=== PATIENT | female | born 1965 | race Caucasian/White ===

== ENCOUNTER 2016-10-23 09:45 | Emergency (ER) | END 2016-10-23 11:24 | disposition home or self-care (01) | DX: R00.2 Palpitations (principal); R07.9 Chest pain, unspecified | CPT/HCPCS: 36415; 71010; 80048; 84484; 85025; 85610; 85730; 93005; 96374; Z7502; Z7610 ==

== ENCOUNTER 2017-01-19 14:18 | Emergency (ER) | payer MEDICAID ==
[~2017-01-19] VITALS: Ht 152.4 cm; Wt 63.0 kg
[~2017-01-19 14:18] MED LIST: IBUP-1542 PO
[2017-01-19 14:30] VITALS: Ht 152.4 cm; Wt 63.0 kg
[2017-01-19] MEDS ORDERED: IBUPROFEN 600 MG TAB PO ONE (17:00)
[2017-01-19 17:05] LABS: URINE BLOOD (Dip) POC 1+ (NEGATIVE)
--- NOTE | 2017-01-19 18:09 | RADRPT ---
PROCEDURE: US Pelvis CLINICAL INDICATION: Pelvic pain. TECHNIQUE: Sonographic evaluation of the pelvis was performed utilizing both transabdominal and tr ansvaginal technique. Curved array transabdominal transducer technique as well as a high frequency endovaginal probe was utilized. Images were reviewed on the high-resolution PACS workstation. COMPARISON: No prior studies are available for comparison. FINDINGS: There is a hypoechoic lesion measuring 9 mm in the uterine fundus, which may reflect a small fibroid . The uterus measures 7.74 cm x 4.2 cm x 4.38 cm in dimension. The uterus is anteverted in normal position. The endometrium measures 0.32 cm in thickness. The right ovary measures 2.04 cm x 1.26 cm x 1.39 cm in dimension. The left ovary measures 2.01 cm x 1.25 cm x 1.34 cm in dimension. There is normal flow demonstrated within the ovaries. There are no adnexal masses. There is no significant free fluid within the pelvis. IMPRESSION: 1. Hypoechoic lesion measuring 9 mm in the uterine fundus, which may reflect a small fibroid. 2. The examination is otherwise unremarkable. RPTAT: QQ .Piter Grullon MD, MD Date Time Electronically viewed and signed by .Piter Grullon MD, MD on 01/19/2017 18:08 .P/
[2017-01-19] MEDS ORDERED: NITR-58 PO (18:52)
[2017-01-19] MEDS ORDERED: IBUP-1542 PO (18:58)
[2017-01-19 19:05] VITALS: BP 138/80; PULSE 84; RESP 18; TEMP 98.3
--- NOTE | 2017-01-20 12:09 | ERD ---
ER Documentation Chief Complaint Date/Time DATE: 01/20/17 TIME: 12:05 Chief Complaint PELVIC PAIN X 2 WEEKS HPI This is a 51-year-old female presenting to emergency department for pelvic pain 2 weeks. Patient states she has pelvic pain that she feels is "always there" however pain seems to be getting worse. Denies any vomiting or diarrhea. Patient has urinary frequency and urgency. Denies dysuria hematuria. Patient' s last menstrual period was 2 months ago. Patient states her menstrual periods have been irregular for the past year. Patient is questioning whether she is in menopause. ROS All systems reviewed and are negative except as per history of present illness. Medications Home Meds Active Scripts Ibuprofen* (Motrin*) 600 Mg Tab, 600 MG PO Q6, #15 TAB Prov:DERRICK PEDROZA NP 01/19/17 Nitrofurantoin Monohyd Macrocr* (Macrobid*) 100 Mg Capsr, 100 MG PO BID for 5 Days, CAP Prov:DERRICK PEDROZA NP 01/19/17 Ibuprofen* (Motrin*) 600 Mg Tab, 600 MG PO Q6H Y for PAIN AND OR ELEVATED TEMP, #30 TAB Prov:ALICE AVILA MD 10/23/16 Allergies Allergies: Coded Allergies: Penicillins (Verified Allergy, Mild, 01/19/17) PMhx/Soc History of Surgery: Yes (HYSTERECTOMY) Anesthesia Reaction: No Hx Neurological Disorder: No Hx Respiratory Disorders: No Hx Cardiac Disorders: Yes (hypertension) Hx Psychiatric Problems: No Hx Miscellaneous Medical Probl: No Hx Alcohol Use: No Hx Substance Use: No Hx Tobacco Use: No Smoking Status: Never smoker Physical Exam Vitals Vital Signs Date Time Temp Pulse Resp B/P Pulse Ox O2 Delivery O2 Flow Rate FiO2 01/19/17 19:05 98.3 84 18 138/80 100 Room Air 01/19/17 14:30 98.1 81 20 146/79 99 Physical Exam Const: No acute distress, alert Head: Atraumatic Eyes: Normal Conjunctiva ENT: Normal External Ears, Nose and Mouth. Neck: Full range of motion..~ No meningismus. Resp: Clear to auscultation bilaterally Cardio: Regular rate and rhythm, no murmurs Abd: Soft, non tender, non distended. Normal bowel sounds Skin: No petechiae or rashes Back: No midline or flank tenderness. No CVA tenderness Ext: No cyanosis, or edema Neur: Awake and alert Psych: Normal Mood and Affect Results 24 hrs Laboratory Tests Test 01/19/17 17:05 Bedside Urine pH (LAB) 7.5 Bedside Urine Protein (LAB) Negative Bedside Urine Glucose (UA) Negative Bedside Urine Ketones (LAB) Negative Bedside Urine Blood 1+ Bedside Urine Nitrite (LAB) Negative Bedside Urine Leukocyte Esterase (L 2+ Current Medications Medications (Trade) Dose Ordered Sig/Vanessa Route PRN Reason Start Time Stop Time Status Last Admin Dose Admin Ibuprofen (Motrin) 600 mg ONCE ONCE PO 01/19/17 17:00 01/19/17 17:01 DC 01/19/17 17:35 Procedures/MDM ED COURSE: The patient was stable throughout ED course. I kept the patient and/or family informed of laboratory and diagnostic imaging results throughout the ED course. Laboratory Urine dip 2+ leukocytosis, 1+ blood Urine negative Imaging Ultrasound pelvis Patient: AILYN CARRANZA : 1965 Age: 51 Sex: F MR #: [id number] DOS: 01/19/17 0000 Ordering MD: DERRICK PEDROZA NP Location: [facility] Room/Bed: PROCEDURE: US Pelvis CLINICAL INDICATION: Pelvic pain. TECHNIQUE: Sonographic evaluation of the pelvis was performed utilizing both transabdominal and transvaginal technique. Curved array transabdominal transducer technique as well as a high frequency endovaginal probe was utilized. Images were reviewed on the high-resolution PACS workstation. COMPARISON: No prior studies are available for comparison. FINDINGS: There is a hypoechoic lesion measuring 9 mm in the uterine fundus, which may reflect a small fibroid. The uterus measures 7.74 cm x 4.2 cm x 4.38 cm in dimension. The uterus is anteverted in normal position. The endometrium measures 0.32 cm in thickness. The right ovary measures 2.04 cm x 1.26 cm x 1.39 cm in dimension. The left ovary measures 2.01 cm x 1.25 cm x 1.34 cm in dimension. There is normal flow demonstrated within the ovaries. There are no adnexal masses. There is no significant free fluid within the pelvis. IMPRESSION: 1. Hypoechoic lesion measuring 9 mm in the uterine fundus, which may reflect a small fibroid. 2. The examination is otherwise unremarkable. MDM: 51-year-old female presents emergency department for intermittent pelvic pain 2 weeks. Patient is also had urinary frequency and urinary urgency. Urine dip reveals 2+ leukocytosis and 1+ blood. Patient denies vomiting or diarrhea. No active vomiting while in the ED. ultrasound pelvis reviewed by radiologist as hypoechoic lesion measuring 9 mm in the uterine fundus, which may reflect a small fibroid. The examination is otherwise unremarkable. Patient remains hemodynamically stable. No fevers or chills. Patient is alert , calm and comfortable. No difficulty urinating. Differential diagnosis includes but not limited to ovarian cyst, uterine fibroid , and menopause. Low suspicion for ovarian abscess or ectopic . Patient is appropriate for outpatient management will be given prescription for ibuprofen and Macrobid. Instructed patient to follow-up with primary care provider in the next week for reassessment. Patient given copies of all testing done while in the ED. Return to ED for any high fever, chest pain, difficulty breathing, shortness breath, wheezing, vomiting, diarrhea, abdominal pain or any new or worsening symptoms. Patient verbalizes understanding. All questions answered at discharge. Departure Diagnosis: Primary Impression: UTI (urinary tract infection) Urinary tract infection type: site unspecified Hematuria presence: with hematuria Qualified Code: N39.0 - Urinary tract infection with hematuria, site unspecified Additional Impression: Fibroid, uterine Uterine leiomyoma location: unspecified location Qualified Code: D25.9 - Uterine leiomyoma, unspecified location Condition: Stable Patient Instructions: Understanding Urinary Tract Infections (UTIs) [facility] Usted se christopher hecho un examen mdico de control que le indica que no est en susan condicin que requiera tratamiento urgente en el Departamento de Emergencia. Un estudio ms profundo y el tratamiento de marion condicin pueden esperar sin ningn riesgo hasta que usted sea atendida/o en el consultorio de marion mdico o susan cl sebastian. Es responsabilidad suya arreglar susan amanda para el seguimiento del bill. MANEJO DE CONDICIONES NO URGENTES EN EL FUTURO 1) Si usted tiene un mdico de atencin primaria: Usted debera llamar a marion mdico de atencin primaria antes de venir al departamento de emergencia. Despus de las horas de consultorio, marion doctor o marion asociado/a est disponible por telfono. El mdico o enfermero de cuca en el servicio telefnico puede asesorarle por kamran medio para atender el problema, o bill contrario se puede programar susan amanda. 2) Si usted no tiene un mdico de atencin primaria: Llame al mdico o clnica de referencia que aparece abajo cleo las horas de consultorio para hacer susan amanda para que le vean. CLINICAS: [place] [id number] [phone] [facility] [phone] [facility] [phone] [address] [place] [address] [phone] [place] [address] [phone] [facility]. [phone] [address] [facility] () [place] se christopher hecho un examen mdico de control que le indica que no est en susan condicin que requiera tratamiento urgente en el Departamento de Emergencia. Un estudio ms profundo y el tratamiento de marion condicin pueden esperar sin ningn riesgo hasta que usted sea atendida/o en el consultorio de marion mdico o susan cl sebastian. Es responsabilidad suya arreglar susan amanda para el seguimiento del bill. MANEJO DE CONDICIONES NO URGENTES EN EL FUTURO 1) Si usted tiene un mdico de atencin primaria: Usted debera llamar a marion mdico de atencin primaria antes de venir al departamento de emergencia. Despus de las horas de consultorio, marion doctor o marion asociado/a est disponible por telfono. El mdico o enfermero de cuca en el servicio telefnico puede asesorarle por kamran medio para atender el problema, o bill contrario se puede programar susan amanda. 2) Si usted no tiene un mdico de atencin primaria: Llame al mdico o condado institucions de referencia que aparece abajo cleo las horas de consultorio para hacer susan amanda para que le vean. SI USTED NO PUEDE PAGAR PARA EVAN UN MEDICO puede ir a: [facility] [address] [place] [address] [facility] [address] [place] [address] [facility] [address] [place] [address] [address] [facility] [address] [place], [place] [id number] Additional Instructions: Llame al doctor MAANA y azeem susan AMANDA PARA DENTRO DE 2-3 DOUGLAS.Dgale a la secretaria que nosotros le instruimos hacer esta amanda.Avise o llame si marion condicin se empeora antes de la amanda. Regresa aqui si peor o no mejor. Return to ED for any high fever, chest pain, difficulty breathing, shortness breath, wheezing, vomiting, diarrhea, abdominal pain or any new or worsening symptoms. DERRICK PEDROZA NP Jan 20, 2017 12:09
== END 2017-01-19 19:06 | disposition home or self-care (01) ==
LOC: FTE 14:18
DX: N39.0 Urinary tract infection, site not specified (principal); D25.9 Leiomyoma of uterus, unspecified; I10 Essential (primary) hypertension
CPT/HCPCS: 76830; 76856; 81003; Z7502; Z7610

== ENCOUNTER 2017-04-26 19:53 | Emergency (ER) | payer MEDICAID ==
[~2017-04-26] VITALS: Ht 142.2 cm; Wt 63.5 kg
[~2017-04-26 19:53] MED LIST changes: +NITR-58 PO
[2017-04-26 19:56] VITALS: Ht 142.2 cm; Wt 63.5 kg
[2017-04-26] MEDS ORDERED: NPH10OT LEFT EAR (20:20)
--- NOTE | 2017-04-26 20:23 | ERD ---
ER Documentation Chief Complaint Date/Time DATE: 04/26/17 TIME: 20:21 Chief Complaint left earache x 1 week HPI Patient is a 51-year-old female who presents with left-sided earache that she has had for 1 week. She states she was in the clinic and she was given a prescription for azithromycin which she is taking but it is not helping. She denies fever. She states that yesterday she had some blood come out of her ear. She denies cough. She has also been taking Motrin. Pain is mild to moderate. ROS All systems reviewed and are negative except as per history of present illness. Medications Home Meds Active Scripts Neomycin/Polymyxin/Hydrocort* (Cortisporin* Otic) 10 Ml Susp, 4 DROP LEFT EAR QID for 7 Days, EA Prov:SIN SIMMS PA-C 04/26/17 Ibuprofen* (Motrin*) 600 Mg Tab, 600 MG PO Q6, #15 TAB Prov:DERRICK PEDROZA NP 01/19/17 Nitrofurantoin Monohyd Macrocr* (Macrobid*) 100 Mg Capsr, 100 MG PO BID for 5 Days, CAP Prov:DERRICK PEDROZA NP 01/19/17 Ibuprofen* (Motrin*) 600 Mg Tab, 600 MG PO Q6H Y for PAIN AND OR ELEVATED TEMP, #30 TAB Prov:ALICE AVILA MD 10/23/16 Allergies Allergies: Coded Allergies: Penicillins (Verified Allergy, Mild, 04/26/17) PMhx/Soc History of Surgery: Yes (HYSTERECTOMY) Anesthesia Reaction: No Hx Neurological Disorder: No Hx Respiratory Disorders: No Hx Cardiac Disorders: Yes (hypertension) Hx Psychiatric Problems: No Hx Miscellaneous Medical Probl: No Hx Alcohol Use: No Hx Substance Use: No Hx Tobacco Use: No FmHx Family History: No diabetes Physical Exam Vitals Vital Signs Date Time Temp Pulse Resp B/P Pulse Ox O2 Delivery O2 Flow Rate FiO2 04/26/17 19:56 98.1 70 20 142/80 98 Physical Exam Const: [] Head: Atraumatic Eyes: Normal Conjunctiva ENT: Left tympanic membrane has purulent drainage in the canal, unable to visualize tympanic membrane secondary to the drainage, right ear is within normal limits, no tenderness over the mastoids bilaterally Neck: Full range of motion..~ No meningismus. Resp: Clear to auscultation bilaterally Cardio: Regular rate and rhythm, no murmurs Abd: Soft, non tender, non distended. Normal bowel sounds Skin: No petechiae or rashes Back: No midline or flank tenderness Ext: No cyanosis, or edema Neur: Awake and alert Psych: Normal Mood and Affect Procedures/MDM Patient has otitis externa. I am unable to visualize the tympanic membrane so I do not know she has otitis media to however she is currently being treated with azithromycin. I gave her prescription for Cortisporin eardrops. No evidence of mastoiditis or malignant otitis externa. Recommended this patient follow up with her primary care doctor within 48 hours or return to the emergency room for any worsening of symptoms. However this time I do believe there is suitable for outpatient management. I answered all their questions and they agreed with the plan and were discharged home. Departure Diagnosis: Primary Impression: Otitis externa Condition: Stable Patient Instructions: External Ear Infection (Adult) Additional Instructions: Llame al doctor ELLYN y azeem susan AMANDA PARA DENTRO DE 1-2 DOUGLAS.Dgale a la secretaria que nosotros le instruimos hacer esta amanda.Avise o llame si marion condicin se empeora antes de la amanda. Regresa aqui si peor o no mejor. SIN SIMMS PA-C Apr 26, 2017 20:23
[2017-04-26 20:49] VITALS: BP 156/83; PULSE 72; RESP 18; TEMP 97.7
== END 2017-04-26 20:50 | disposition home or self-care (01) ==
LOC: FTE 19:53
DX: H60.92 Unspecified otitis externa, left ear (principal); I10 Essential (primary) hypertension
CPT/HCPCS: 99283

== ENCOUNTER 2017-12-24 21:54 | Emergency (ER) | END 2017-12-25 00:02 | disposition home or self-care (01) ==